=== PATIENT | male | born 1990 | race African-American/Black ===

== ENCOUNTER 2020-03-23 06:15 | Day surgery (SDC) | payer OTHER ==
[2020-03-22 13:42] VITALS: BMI 18.3
[2020-03-23] MEDS ORDERED: EPINEPHrine 1:1,000 1 MG/1 ML - 30ML VIAL (INJECTION) ONE (07:15)
[2020-03-23] MEDS ORDERED: BUPIVACAINE HCL/PF 2.5 MG/ML - 30 ML VIAL IJ ONE (07:15)
[2020-03-23] MEDS ORDERED: PROPOFOL 20 ML ONE ×3 (07:16→08:13)
[2020-03-23] MEDS ORDERED: MIDAZOLAM HCL 2 MG/2 ML SINGLE DOSE VIAL ONE (07:16)
[2020-03-23] MEDS ORDERED: DEXAMETHASONE SOD PHOSPHATE 4 MG/1 ML VIAL ONE (07:16)
[2020-03-23] MEDS ORDERED: LIDOCAINE HCL/PF 2% SDV 5ML VIAL ONE (07:16)
[2020-03-23] MEDS ORDERED: ONDANSETRON 4 MG/2 ML VIAL ONE (07:16)
--- NOTE | 2020-03-23 07:37 | HP ---
History & Physical Update - Physical Physical: No Change - Assessment Assessment: No Change - Plan Plan: No Change
[2020-03-23] MEDS ORDERED: ceFAZolin SODIUM 1 GM VIAL ONE (08:18)
[2020-03-23] MEDS ORDERED: oxyCODONE HCL 5 MG TABLET PO PRN ×2 (08:21)
[2020-03-23] MEDS ORDERED: ONDANSETRON 4 MG/2 ML VIAL IVPUSH PRN (08:21)
[2020-03-23] MEDS ORDERED: LACTATED RINGERS SOLUTION 1,000 ML IV SCH (08:30)
[2020-03-23] MEDS ORDERED: BUPIVACAINE HCL/PF 0.25% (2.5MG/ML) 10 ML VIAL IJ ONE (09:00)
[2020-03-23] MEDS ORDERED: KETOROLAC TROMETHAMINE 30 MG/1 ML VIAL ONE (09:08)
[2020-03-23] MEDS ORDERED: oxyCODONE HCL 5 MG TABLET ONE (10:47)
[2020-03-23 11:58] VITALS: TEMP 97.9
--- NOTE | 2020-03-23 13:17 | OPR ---
DATE OF OPERATION: 03/23/2020 TITLE OF OPERATION: Left Lateral partial meniscectomy, and synovectomy (limited) with medial plica excision. PREOPERATIVE DIAGNOSIS: Left Latera meniscus tear, patellofemoral synovitis. POSTOPERATIVE DIAGNOSIS: Left Lateral meniscus tear, and synovitis SURGEON: Gabe Vincent DO [employer] TUTOR: Huey Chambers DO ANESTHESIA: General anesthesia SPECIMEN: Meniscus shavings COMPLICATIONS: none EBL: 5cc INDICATIONS FOR SURGERY: Mr. Underwood is a 29 year old male who presented in the preoperative setting with a chief complaint of left knee pain and lateral meniscus tear. Based on their pre-injury level of activity, and after failure of conservative management, as well as mechanical symptoms, surgical treatment was discussed. The risks and benefits of surgery and anesthesia were discussed in detail including but not limited to pain, bleeding, infection, scarring, damage to vessels and nerves, failure to obtain the desired result, failure to heal, failure to return to sport or work. Understanding the risks and benefits, Mr. Underwood opted to proceed with surgical management. SURGEON'S NARRATIVE: After informed consent was obtained the patient was brought the operating room prepped draped in usual fashion sterile technique. Timeout was called. Site verification was performed and perioperative antibodies were administered. A standard anterolateral portal was made and the 4 mm 30 degree arthroscope was inserted into the knee joint without difficulty. This revealed patellofemoral synovitis, as well as a medial plica. Turning my attention the medial compartment the patient had a an intact medial meniscus and medial femoral condyle and medial tibial plateau. There was no associated chondromalacia of the medial femoral condyle. The meniscus was intact from root to root. The ACL was examined and was intact. Turning my attention the lateral compartment the patient had a tear of the lateral meniscus involving the anterior horn and body. There was no mild grade II ICRS changes of the medial tibial plateau. I performed a partial lateral meniscectomy removing the torn tissue with an arthroscopic shaver. I estimate that I removed approximately 25 percent of the meniscus. The remaining meniscus was intact after the resection, from root to root. I then went into the patellofemoral compartment to complete a limited synovectomy and plica excision. This completed the procedure. I closed incisions with 3-0 nylon. A sterile dressing and xeroform and an DENNY bandage was placed. The patient tolerated procedure well and arrived recovery in stable condition. Huey Chambers DO was first-warehouse administrative assistant in the case as there were no qualified assistants or residents available. Patient will follow up with me in the office within 10-14 days for suture removal. He will start ASA 325 QD starting tomorrow for 30 days. He will be WBAT with crutches, and start Physical therapy within 3-5 days. Gabe Vincent DO --
[2020-03-23 14:16] VITALS: BP 134/82; PULSE 50
--- NOTE | 2020-03-27 17:05 | PATH ---
Surgical Pathology Report Patient Name: KARIN ADLER Med. Rec. #: [id number] /Age/Gender: 1990 (Age: 29) / M Account: [id number] Location: [facility] Taken: 03/23/2020 Received: 03/23/2020 Reported: 03/27/2020 Physicians: Gabe Vincent MD Specimen(s) Received LEFT KNEE SHAVINGS Clinical History Left knee lateral meniscus tear Final Diagnosis KNEE, LEFT, ARTHROSCOPIC SHAVINGS: FIBROSYNOVIAL AND FIBROCOLLAGENOUS TISSUE. Electronically Signed Sonali Hogan M.D. Gross Description Received in formalin, labeled "left knee shavings," is a 5.0 x 5.0 x 0.4 cm. aggregate of moreira-yellow soft tissue fragments. A communications representative portion is submitted in one cassette. /03/26/2020 saudi/03/26/2020
== END 2020-03-23 11:45 | disposition home or self-care (01) ==
LOC: FASU 06:15
PROVIDERS: ATTEND Orthopaedic Surgery Sports Medicine
PROC: 0SBD4ZZ Excision of Left Knee Joint, Percutaneous Endoscopic Approach (ICD-10-PCS; 2020-03-23)
PROC: 0SBD4ZZ Excision of Left Knee Joint, Percutaneous Endoscopic Approach (ICD-10-PCS; principal; 2020-03-23 08:04)
DX: S83.282A Other tear of lateral meniscus, current injury, left knee, initial encounter (principal); M65.862 Other synovitis and tenosynovitis, left lower leg; X58.XXXA Exposure to other specified factors, initial encounter; Y93.9 Activity, unspecified; Y92.9 Unspecified place or not applicable
CPT/HCPCS: 88304-TC; 94760